=== PATIENT | female | born 1990 | race Caucasian/White ===

== ENCOUNTER → 2016-07-07 | Outpatient (CLI) | payer OTHER ==
--- NOTE | 2016-07-07 16:45 | US ---
Dear Dr. Villareal, Thank you for sending your patient, Brooke Meeks, to us for an US and consultation to assess an atomy. As you know, the patient is a 26 y.o. G1, P0 at 19 weeks and 3 days with an EDC of 11/29/16 bas ed on a 7 week US. Her has been uncomplicated to date. Genetic Screening: Sequential Screen negative The patient denies any uterine contractions, vaginal bleeding, or loss of fluid. Today, she is withou t complaints. US FINDINGS: Number of fetuses: 1 Placental location: Posterior, No previa Placental Cord Insertion: Central presentation: Breech Cervix: 4.9 cm, transabdominally MVP: 3.8 cm The adnexa were evaluated. No pathology was seen. Right ovary: Normal Left ovary: Normal heart rate: 138 bpm Measurements: Biparietal diameter: 45 mm, 9 weeks 5 days Head circumference: 166 mm, 9 weeks 2 days Abdominal circumference: 149 mm, 20 weeks 1 days Femur length: 1 mm, 9 weeks 5 days Humerus length: 28 mm, 19 weeks 2 days Transcerebellar diameter: 19 mm, 19 weeks 2 days Average ultrasound age: 19 weeks 5 days Estimated weight: 316 g weight percentile: 78% ANATOMY Supratentorial brain: Normal Cerebral lateral ventricle: 4.8 mm Posterior fossa: Normal Cisterna magna: 2.8 mm Nuchal fold: 5.7 Lip: Normal Profile: Normal Alveolar Ridge: Appears intact Spine: -- Cervical: Normal -- Thoracic: Normal -- Lumbar: Normal -- Sacral: Normal Heart: -- 4 Chamber: Normal -- Intraventricular septum: Appears intact by Color and Spectral US -- Right Outflow Tract: Normal -- Left Outflow Tract: Normal -- 3 Vessel View: Normal Diaphragm: Appears intact Stomach: Normal Abdominal Umbilical Cord Insertion: Normal Right kidney: Normal Left kidney: Normal Bladder: Normal Number of cord vessels: 3 Upper extremities: -- Right Arm: Normal -- Right Hand: Normal -- Left Arm: Normal -- Left Hand: Normal Lower extremities: -- Right Leg: Normal -- Right Foot: Normal, no club foot -- Left Leg: Normal -- Left Foot: Normal, no club foot IMPRESSION: 1. Anatomy: The fetus measures appropriate for gestational age, measuring a normal weight and percen tile. Visualization of the fetus today reveals no overt structural anomalies. There is evidence of no rmal amniotic fluid, and movement was seen during the examination. 2. Genetic Screening: This patient has had reassuring Sequential Screen results this . Today , no markers of aneuploidy were seen. While her screening and US results are reassuring, we rev iewed that aneuploidy can only be definitively excluded with diagnostic testing via amniocentes is. After this discussion, the patient does not wish to proceed with invasive testing at this time. Thank you again for sending this patient to see us today. Please feel free to contact me with any questions at . Brianne Molina MD Maternal- Medicine
--- NOTE | 2016-07-07 17:45 | US ---
Complete Obstetric Ultrasound History: 26-year-old with estimated gestational age of 19 weeks 2 days and EDC of November 29, 2016. Comparison: OB ultrasound May 19, 2016. Findings: Number: 1 Presentation: Breech Placental location: Posterior. No previa. Cervix: Closed, measuring 4.9 cm transabdominally Maximum vertical pocket: 3.8 cm The ovaries are normal. Biometry: Biparietal diameter: 45 mm 19 weeks, 5 days Head circumference: 166 mm 19 weeks, 2 days Abdominal circumference: 149 mm 20 weeks, 1 days Femur length: 31 mm 19 weeks, 5 days Humerus length: 28 mm 19 weeks, 2 days Transcerebellar diameter: 20 mm 19 weeks, 2 days Average ultrasound age: 19 weeks, 5 days EDC based on today's average ultrasound age: November 26, 2016. Estimated weight is 316 gms +/- 46 gms. The estimated weight percentile is 78 % based on previous dating. ANATOMY SURVEY: Supratentorial brain: Normal Posterior fossa: Normal Spine: Normal Nose and lips: Normal Heart: Four chamber heart with heart rate of 138. The outflow tracts are normal. Stomach: Normal Umbilical cord insertion: Normal Kidneys: Normal Bladder: Normal Number of cord vessels: Three Upper extremities: Normal Lower extremities: Normal Impression: 1. Living single intrauterine with size concordant with dates. 2. Unremarkable anatomy. Please see separate dictation for consultation performed by Brianne Molina MD, the catherine echavarria.
== END ==
LOC: FIMAGING 13:36
PROVIDERS: ATTEND Obstetrics & Gynecology
DX: Z36 Encounter for antenatal screening of mother (principal); Z3A.19 19 weeks gestation of pregnancy

== ENCOUNTER 2016-11-25 17:20 | Inpatient (IN) | payer BC, OTHER ==
[2016-11-25] MEDS ORDERED: LR 1,000 ML IV PRN (19:17)
[2016-11-25] MEDS ORDERED: OLIVE OIL 118 ML BTL MISC PRN (19:17)
[2016-11-25] MEDS ORDERED: TERBUTALINE SULFATE 1 MG/ML VIAL IV PRN (19:17)
[2016-11-25] MEDS ORDERED: OXYTOCIN/RINGERS LACTATE 1,000 ML IV PRN (19:17)
[2016-11-25] MEDS ORDERED: EPSOM SALT 454 GM TP PRN (19:17)
[2016-11-25] MEDS ORDERED: diphenhydrAMINE 25 MG CAP PO PRN (19:28)
[2016-11-25] MEDS ORDERED: OLIVE OIL 118 ML BTL ONE (19:37)
[2016-11-25] MEDS ORDERED: TERBUTALINE SULFATE 1 MG/ML VIAL ONE (19:37)
[2016-11-25] MEDS ORDERED: AMMONIA AROMATIC 1 EACH AMP IH ONE (19:37)
[2016-11-25] MEDS ORDERED: LIDOCAINE 1% 300 MG/30 ML SDV ONE (19:37)
[2016-11-25] MEDS ORDERED: OXYTOCIN 10 UNIT/ML VIAL ONE (19:38)
[2016-11-25] MEDS ORDERED: MISOPROSTOL 200 MCG TAB ONE (19:38)
[2016-11-25 19:59] LABS: % IMMATURE GRANULYOCYTES 1.1 % (0.0-1.1); ABSOLUTE IMMATURE GRANULOCYTES 0.11 10^3/uL (0.00-0.10); ADD DIFF? NO; ADD MORPH? NO; ADD SCAN? NO; ATYPICAL LYMPHOCYTE FLAG 10 (0-99); FRAGMENT RBC FLAG 0 (0-99); HEMOGLOBIN 13.5 g/dL (12.6-16.3); LEFT SHIFT FLG 10 (0-99); LIPEMIA HEMOLYSIS FLAG 90 (0-99); MEAN CELL HEMOGLOBIN 31.4 pg (27.9-34.1); MEAN CELL HEMOGLOBIN CONCENTR. 34.6 g/dL (32.4-36.7); MEAN CELL VOLUME 90.7 fL (81.5-99.8); MEAN PLATELET VOLUME 10.2 fL (8.7-11.7); PLATELET CLUMPS FLAG 0 (0-99); PLATELET COUNT 237 10^3/uL (150-400); RED CELL DISTRIBUTION WIDTH 14.1 % (11.5-15.2)
[2016-11-25] MEDS: MISOPROSTOL 100 MCG TAB PO SCH (20:03)
--- NOTE | 2016-11-25 20:31 | GHP ---
[f rep st] HISTORY AND PHYSICAL DATE OF ADMISSION: 11/25/2016 CHIEF COMPLAINT: Leakage of fluid. HISTORY OF PRESENT ILLNESS: The patient is a 26-year-old, 1, para 0, at 39 weeks 3 days estimated gestational age, with a due date of 11/29/2016, with dating by a first-trimester ultrasound that was 6 days discordant from last menstrual period but concordant with date of conception. The patient states she had a very small amount of fluid at about 6 a.m. this morning. She went and got a pedicure and took a nap after calling her director content marketing, and then she woke up, and at about 12:30 she had a much larger gush of fluid. She continued to rest at home and had ongoing multiple gushes of fluid. She called her provider in the office later in the afternoon relaying information that her bag of water had broken. It was recommended that she come into the hospital at that time for evaluation. The patient is otherwise feeling well. She is not having much more leaking at this time. She is having very rare contractions about every 25 minutes. Her baby is active. REVIEW OF SYSTEMS: Negative, apart from stated in History of Present Illness. PAST MEDICAL HISTORY: PCOS, seasonal allergies. PAST SURGICAL HISTORY: [place] tooth removal. FAMILY HISTORY: Noncontributory. ALLERGIES: She gets a rash to amoxicillin. MEDICATIONS: vitamin, vitamin D3, vitamin B, Nasacort p.r.n. Of note , she did take metformin in the 1st trimester, but has stopped it at this time. SOCIAL HISTORY: She is . She is an pipeline engineer. She denies tobacco, alcohol, and drug use. She does drink alcohol socially outside of . PHYSICAL EXAMINATION: VITAL SIGNS: Blood pressure 122/75, heart rate 99, temperature 36.6. GENERAL: Alert, awake, no acute distress. RESPIRATORY: respirations unlabored. CARDIOVASCULAR: Regular rate and rhythm. ABDOMEN: Gravid, soft, nontender. EFW by Bernard 8 pounds. EXTREMITIES: No edema. STERILE SPECULUM: Cervix long and closed. Small amount of blood in vagina. No pooling. AmniSure test collected. Sterile vaginal exam performed with dilation of 1.5 cm, 50% effacement, -2 station, posterior. A bedside transabdominal ultrasound was performed confirming vertex presentation. ILDA = 6.5 cm fluid. status reassuring with baseline 135 beats per minute. Moderate variability. Positive accelerations. No decelerations. Over the course of 1 hour, she had approximately 2 contractions. ASSESSMENT: Patient is a healthy, 26-year-old, 1, para 0, at 39 weeks 3 days' gestation. She presents with a compelling story for rupture of membranes at home. No obvious leakage of fluid was able to be elicited on exam ; however, her AmniSure test did return positive. Based on this, and her story of multiple large gushes of fluid at home, we can confirm that the patient is indeed ruptured. She is not in labor at this time. She has reassuring status. She has normal OB laboratory testing, including group B strep negative , blood type A positive with a negative antibody screen, negative infectious disease testing, and she is immune to rubella. She had a normal 1-hour Glucola. PLAN: We will plan to admit patient to Labor and Delivery for induction of labor for ruptured membranes. We reviewed induction methods and we agreed to proceed with oral Cytotec for cervical ripening, and then will transition to Pitocin once she begins a regular contraction pattern. All questions answered in detail for patient and family. /[id number]/MODL MTDD
[2016-11-26] MEDS: MISOPROSTOL 100 MCG TAB PO SCH ×2 (00:06→04:06)
[2016-11-26] MEDS: ZOLPIDEM TARTRATE 5 MG TAB PO PRN ×2 (00:10→00:56)
[2016-11-26] MEDS ORDERED: LR 500 ML IV PRN (04:03)
--- NOTE | 2016-11-26 04:16 | OBPROG ---
OBG Labor Progress Note Assessment/Plan: Assessment: G1 at 39w4d SROM at 12:00 yesterday AOL Periods of minimal variability s/p ambien, but returns spontaneously to moderate variability. + accels. ? rare subtle late vs early decel, difficult to say as toco not reading very well. Overall baby is reassuring with mod radhika and accels. Plan: s/p 2 doses miso for ripening. Now alexy every 3-7 minutes start pitocin AOL at 0500 Continuous monitoring 11/26/16 04:13 Subjective: Per RN patient is resting comfortably s/p ambien. Objective: 11/25/16 19:40 Patient ABO/Rh A POSITIVE 11/25/16 19:40 VS WNL, temp = 36.6 Twin A FHR Pattern Variability: Minimal, Moderate FHR Category: 1 Membranes: SROM Oxytocin Orders Assessment - Pre-Induction/Augmentation Assessment Gestational Age: 39 week(s) and 3 day(s) ICD10 Worksheet Patient Problems: Problems Problem Status Onset 39 weeks gestation of Acute SROM (spontaneous rupture of membranes) Acute - ICD10 Problem Qualifiers (1) SROM (spontaneous rupture of membranes) (2) 39 weeks gestation of
[2016-11-26] MEDS ORDERED: OXYTOCIN/RINGERS LACTATE 500 ML IV SCH (04:30)
[2016-11-26] MEDS ORDERED: PHENYLEPHRINE HCL 100 MCG/ML SYR ONE (07:05)
[2016-11-26] MEDS ORDERED: BUPIVACAINE 0.25% 30 ML SDV ONE (07:05)
[2016-11-26] MEDS ORDERED: fentaNYL 2MCG/ML/BUP 0.1% RTU 100 ML BAG EP ONE (07:05)
[2016-11-26] MEDS ORDERED: fentaNYL 100 MCG/2 ML INJ ONE (07:06)
--- NOTE | 2016-11-26 07:53 | OBPROG ---
OBG Labor Progress Note Assessment/Plan: Assessment: G1 at 39w4d SROM at 12:00 yesterday s/p miso x 2, now on pitocin 2 mu status reassuring Plan: Labor down x 1 hr and then start pushing Expect Subjective: Comfortable with epidural Objective: 11/25/16 19:40 Patient ABO/Rh A POSITIVE 11/25/16 19:40 - SVE Dilation (cm): 10 Effacement (%): 100 Station: +1 Twin A Membranes: SROM Gandara FHR (bpm): 135 FHR Pattern Variability: Moderate FHR Category: 1 Oxytocin Orders Assessment - Pre-Induction/Augmentation Assessment Gestational Age: 39 week(s) and 3 day(s) ICD10 Worksheet Patient Problems: Problems Problem Status Onset 39 weeks gestation of Acute SROM (spontaneous rupture of membranes) Acute - ICD10 Problem Qualifiers (1) SROM (spontaneous rupture of membranes) (2) 39 weeks gestation of
[2016-11-26] MEDS ORDERED: ONDANSETRON 4 MG/2 ML VIAL IVP PRN (09:54)
[2016-11-26] MEDS ORDERED: PHENYLEPHRINE HCL 100 MCG/ML SYR IVP PRN (09:54)
[2016-11-26] MEDS ORDERED: LR 500 ML IV SCH (10:00)
[2016-11-26] MEDS ORDERED: fentaNYL 2MCG/ML/BUP 0.1% RTU 100 ML EP SCH (10:00)
--- NOTE | 2016-11-26 10:01 | PREANESOB ---
Obstetric Pre-Anesthesia Info - General Info Proposed Procedure: Labor and delivery with pitocin. : 1 Para: 0 WBD: 39 - Info Status: Full Term Monitors: External FHR Baseline (bpm): 135 FHR Pattern: Reassuring - Labor Status Station per last OB SVE: +1 Pitocin: In Use Indications for Labor Analgesia: Augmentation of Labor, Pain Control Labor Epidural: Proposed Anesthesia ROS: PCOS. Allergies/Adverse Reactions: Allergy/AdvReac Type Severity Reaction Status Date / Time amoxicillin Allergy Verified 11/26/16 10:01 Home Medications: Medication Instructions Recorded Cyanocobalamin [Vitamin B12 (*)] 1,000 mcg PO DAILY 11/25/16 IRON,CARBONYL [IRON] 45 mg PO 11/25/16 Vit27&Calcium/Iron/FA 1 each PO 11/25/16 [] Visit Medications: Generic Name Dose Route Start Last Admin Trade Name Freq PRN Reason Stop Dose Admin Diphenhydramine HCl 50 mg 11/25/16 19:28 Benadryl PO 05/24/17 19:27 HS PRN Sleep/Insomnia Lactated Ringer's 1,000 mls @ 0 mls/hr 11/25/16 19:17 Lr IV 05/24/17 19:16 PRN PRN SEE PROTOCOL CONDITIONS Protocol Per Protocol Oxytocin/Lactated Ringer's 1,000 mls @ 150 mls/hr 11/25/16 19:17 Pitocin 20 Units/Lr (Premix) IV PRN PRN Post- bleeding Lactated Ringer's 500 mls @ 500 mls/hr 11/26/16 04:03 Lr IV PRN PRN Maternal Hypotension Oxytocin/Lactated Ringer's 500 mls @ 0 mls/hr 11/26/16 04:30 11/26/16 05:09 Pitocin 30 Units/Lr (Premix) IV 05/25/17 04:29 500 mls CONT ROYA Administration Protocol Per Protocol Fentanyl/Bupivacaine HCl 100 mls @ 0 mls/hr 11/26/16 10:00 Fentanyl/Bupivacaine/Ns 2 Mcg/Ml 0.1% (Premix EP 12/06/16 09:59 CONT ROYA Protocol As Directed Lactated Ringer's 500 mls @ 0 mls/hr 11/26/16 10:00 Lr IV 05/25/17 09:59 CONT ROYA As Directed Ibuprofen 600 mg 11/25/16 19:17 Motrin PO 05/24/17 19:16 Q6HRS PRN post , inflammation Magnesium Sulfate 454 gm 11/25/16 19:17 Epsom Salt TP 05/24/17 19:16 PRN PRN perineal discomfort [place] Oil 118 ml 11/25/16 19:17 Sweet Oil MISC 05/24/17 19:16 ONCE PRN preneal massage Ondansetron HCl 4 mg 11/26/16 09:54 Zofran IVP 05/25/17 09:53 Q4HRS PRN Nausea/Vomiting, Can't Take PO Phenylephrine HCl 100 mcg 11/26/16 09:54 Neosynephrine IVP 05/25/17 09:53 .Q2M PRN Hypotension Terbutaline Sulfate 0.25 mg 11/25/16 19:17 Brethine IV 05/24/17 19:16 ONCE PRN Tachysystole Zolpidem Tartrate 10 mg 11/25/16 19:28 11/26/16 00:56 Ambien PO 05/24/17 19:27 5 mg HS PRN Administration Sleep/Insomnia Discontinued Medications Generic Name Dose Route Start Last Admin Trade Name Freq PRN Reason Stop Dose Admin Ammonia (Aromatic Spirit) Confirm 11/25/16 19:37 Ammonia Aromatic Administered 11/25/16 19:38 Dose 1 each IH .STK-MED ONE Bupivacaine HCl Confirm 11/26/16 07:05 Sensorcaine 0.25% Sdv Administered 11/26/16 07:06 Dose 30 ml .ROUTE .STK-MED ONE Fentanyl Confirm 11/26/16 07:06 Sublimaze Administered 11/26/16 07:07 Dose 100 mcg .ROUTE .STK-MED ONE Fentanyl/Bupivacaine HCl Confirm 11/26/16 07:05 Fentanyl/Bupivacaine/Ns 2 Mcg/Ml 0.1% (Premix Administered 11/26/16 07:06 Dose 100 ml EP .STK-MED ONE Lidocaine HCl Confirm 11/25/16 19:37 Lidocaine Hcl 1% Administered 11/25/16 19:38 Dose 300 mg .ROUTE .STK-MED ONE Misoprostol 50 mcg 11/25/16 20:00 11/26/16 04:06 Cytotec PO 05/24/17 19:59 Not Given Q4H ROYA Misoprostol Confirm 11/25/16 19:38 Cytotec Administered 11/25/16 19:39 Dose 1,000 mcg .ROUTE .STK-MED ONE [place] Oil Confirm 11/25/16 19:37 Sweet Oil Administered 11/25/16 19:38 Dose 118 ml .ROUTE .STK-MED ONE Oxytocin Confirm 11/25/16 19:38 Pitocin Administered 11/25/16 19:39 Dose 40 unit .ROUTE .STK-MED ONE Phenylephrine HCl Confirm 11/26/16 07:05 Neosynephrine Administered 11/26/16 07:06 Dose 1,000 mcg .ROUTE .STK-MED ONE Terbutaline Sulfate Confirm 11/25/16 19:37 Brethine Administered 11/25/16 19:38 Dose 1 mg .ROUTE .STK-MED ONE - Anesthesia History Response to Local Anesthetics: Normal Anesthesia & Operative History: Other (Specify) Family Anesthesia History: Negative - Social History Substance Use/Abuse: Denies - Focused Exam Blood Pressure: 132/71 Heart Rate: 81 Respiratory Rate: 16 Height/Weight (Nursing): Height 162.56 cm Weight 92.533 kg Physical Exam: Within normal limits. ASA Status: II Labs: 11/25/16 19:40 Patient ABO/Rh A POSITIVE 11/25/16 19:40 - Plan Anesthetic Plan: CSE Consent Signed and on Chart: Yes Patient/Guardian Understands and Agrees to Plan: Yes
--- NOTE | 2016-11-26 10:25 | POSTANESTH ---
Post Anesthetic Evaluation Cardiovascular Status: Normal, Stable Respiratory Status: Normal, Stable, Similar to Pre-op Cond. Level of Consciousness/Mental Status: Can Participate in Eval, Alert and Oriented (Tolerated CSE well, stable, comfortable.) Pain Control: Adequate, Prn Tx Ordered Nausea/Vomiting Control: Adequate, Prn Tx Ordered Complications Possibly Related to Anesthesia: None Noted
[2016-11-26] MEDS ORDERED: SIMETHICONE 80 MG TAB CHEW PO PRN (10:55)
[2016-11-26] MEDS ORDERED: HYDROCODONE/APAP 5/325 TAB PO PRN (10:55)
[2016-11-26] MEDS ORDERED: DOCUSATE SODIUM 100 MG CAP PO PRN (10:55)
[2016-11-26] MEDS ORDERED: HYDROCORTISONE 0.5% CREAM TP PRN (10:55)
--- NOTE | 2016-11-26 10:55 | OBDEL ---
Info Type: Vaginal GBS+: No Indications for Delivery: SROM Vaginal Delivery - Labor and Delivery Onset of Contractions Date: 11/26/16 Onset of Contractions Time: 03:30 Onset of Contractions Type: Spontaneous Rupture of Membranes Date: 11/25/16 Rupture of Membranes Time: 12:30 Rupture of Membranes Type: Premature Dilation Complete Date: 11/26/16 Dilation Complete Time: 07:30 Placenta Delivery Date: 11/26/16 Placenta Delivery Time: 09:50 Total Hours of Labor: 6 Vaginal Sponge Count Correct: Yes Vaginal Needle Count Correct: Yes Operative Report - Delivery L&D Analgesia/Anesthesia Type: Epidural Data Twin A Delivery Date: 11/26/16 Delivery Time: 09:46 FLAQUITA: 11/29/16 Gestational Age: 39 week(s) and 4 day(s) Weight (gm): 3134 kg Score (1 Min): 9 Gandara Delivery Date: 11/26/16 Delivery Time: 09:46 FLAQUITA: 11/29/16 Gestational Age: 39 week(s) and 4 day(s) Sex of : Female [place] Weight (gm): 0 g Score (1 Min): 8 Score (5 Min): 9 ICD10 Worksheet Patient Problems: Problems Problem Status Onset 39 weeks gestation of Acute SROM (spontaneous rupture of membranes) Acute Vaginal delivery Acute - ICD10 Problem Qualifiers (1) SROM (spontaneous rupture of membranes) (2) 39 weeks gestation of (3) Vaginal delivery
[2016-11-26] MEDS ORDERED: OXYTOCIN/RINGERS LACTATE 1,000 ML IV SCH (11:00)
[2016-11-26] MEDS: IBUPROFEN 600 MG TAB PO PRN ×3 (11:40→23:51)
[2016-11-27] MEDS: IBUPROFEN 600 MG TAB PO PRN ×3 (07:20→19:34)
--- NOTE | 2016-11-27 08:24 | OBPP ---
Progress Note Assessment/Plan: Assessment: PPD#1 s/p uncomplicated at 39w4d Recovering well Rh pos, Rub imm Plan: Routine pp care Home tomorrow Subjective: Feels well. Slept for about 2 hours. Baby isn't really latching yet but she is expressing colostrum and feeding to baby. Pain under good control. Voiding normally but no BM yet. Tolerating regular diet. Plans shower today Objective: 11/25/16 19:40 Patient ABO/Rh A POSITIVE 11/25/16 19:40 Temp Pulse Resp BP Pulse Ox 36.4 C 100 18 117/83 H 97 11/26/16 20:00 11/26/16 20:00 11/26/16 16:05 11/26/16 20:00 11/26/16 16:05 Gen: NAD Resp: unlabored CV: RRR Abd: soft, nontender, uterus firm below U Ext: no edema Breasts: soft
[2016-11-27 08:25] VITALS: O2SAT 96
[2016-11-28] MEDS: IBUPROFEN 600 MG TAB PO PRN ×3 (01:59→13:50)
[2016-11-28 10:08] VITALS: BP 112/74; PULSE 84; RESP 16; TEMP 97.1
--- NOTE | 2016-11-28 10:51 | OBGCSDC ---
General Delivery Information - General Info : 1 Para: 0 Delivery Physician/CNM: Catherine Hernandez Admission Date: 11/25/16 Labs: Patient ABO/Rh A POSITIVE 11/25/16 19:40 Hct 39.0 % (38.0-47.0) 11/25/16 19:40 Vaginal - Diagnosis Labor: Spontaneous Presentation at Delivery: Vertex Rupture of Membranes Type: Premature Amniotic Fluid Color: Clear Laceration: 2nd Degree Repair: 3-0 Delivery Events: None - Operations/Procedures L&D Analgesia/Anesthesia Type: Epidural - Hospital Course Antepartum: Uncomplicated first . PROM without onset of labor at 39w3d. GBS neg Intrapartum: AOL with cytotec 50 mcg x 2. IV Pitocin started after 2nd dose of cytotec. Epidural placed. Pt found to be 10 cm, labored down x 1 hour, then pushed for 31 minutes. Uncomplicated , small 2nd degree laceration and small left vaginal laceration : Routine pp care. BF going well. Home PPD#2. control options discussed. Rh pos, Rub imm - Delivery Type: Vaginal L&D Analgesia/Anesthesia Type: Epidural [place] Data Twin A Delivery Date: 11/26/16 Delivery Time: 09:46 FLAQUITA: 11/29/16 Gestational Age: 39 week(s) and 6 day(s) Sex of Infant: Female Weight (gm): 3134 kg Score (1 Min): 9 Gandara Delivery Date: 11/26/16 Delivery Time: 09:46 FLAQUITA: 11/29/16 Gestational Age: 39 week(s) and 6 day(s) Sex of : Female [place] Weight (gm): 0 g Score (1 Min): 8 Score (5 Min): 9 Discharge Information - Discharge Information Discharge Medications: Ibuprofen Condition: Good Instruction/Follow Up: See Instruction Sheet Discharge Physician/CNM: Catherine Hernandez
== END 2016-11-28 14:15 | disposition home or self-care (01) | DRG 775 ==
LOC: FLD 17:20 → OBSVTOIN 19:18 → FOB 11-26 14:29
PROVIDERS: ADMIT Obstetrics & Gynecology; ATTEND Obstetrics & Gynecology
PROC: 0KQM0ZZ Repair Perineum Muscle, Open Approach (ICD-10-PCS; principal; 2016-11-26)
PROC: 10E0XZZ Delivery of Products of Conception, External Approach (ICD-10-PCS; principal; 2016-11-26)
PROC: 0UQGXZZ Repair Vagina, External Approach (ICD-10-PCS; principal; 2016-11-26)
DX: O42.02 Full-term premature rupture of membranes, onset of labor within 24 hours of rupture (principal); O70.1 Second degree perineal laceration during delivery; O71.4 Obstetric high vaginal laceration alone; Z3A.39 39 weeks gestation of pregnancy; Z37.0 Single live birth
CPT/HCPCS: J2370; J2590; J3010; J3105

== ENCOUNTER → 2016-12-01 | Outpatient (CLI) | payer BC | LOC: FLAB 10:10 | PROVIDERS: ATTEND Obstetrics & Gynecology | DX: Z39.1 Encounter for care and examination of lactating mother (principal); R63.3 Feeding difficulties | CPT/HCPCS: G0463 ==

== ENCOUNTER → 2017-10-22 | Outpatient (CLI) | payer OTHER | LOC: FIMAGING 08:01 | PROVIDERS: ATTEND Family Medicine | DX: N60.01 Solitary cyst of right breast (principal); Z80.3 Family history of malignant neoplasm of breast ==

== ENCOUNTER → 2018-01-07 | Outpatient (CLI) | payer OTHER, BC | LOC: CIMAGING 15:48 | PROVIDERS: ATTEND Family Medicine | DX: M54.2 Cervicalgia (principal); M54.6 Pain in thoracic spine | CPT/HCPCS: 72040-PO ==